=== PATIENT | male | born 1990 | race African-American/Black ===

== ENCOUNTER 2017-07-16 15:14 | Emergency (ER) | payer SELFPAY ==
[~2017-07-16] VITALS: Ht 170.2 cm; Wt 66.5 kg
[~2017-07-16 15:14] MED LIST: NOHOMEMEDS
[2017-07-16 18:40] VITALS: BP 122/75
== END 2017-07-16 18:41 | disposition left against medical advice (07) ==
LOC: EME 15:14
DX: M79.642 Pain in left hand (principal); Z53.20 Procedure and treatment not carried out because of patient's decision for unspecified reasons; F17.200 Nicotine dependence, unspecified, uncomplicated
CPT/HCPCS: 73130; 99281; 99284

== ENCOUNTER 2017-08-02 22:26 | Emergency (ER) | payer SELFPAY ==
[~2017-08-02] VITALS: Ht 170.2 cm; Wt 65.9 kg
[2017-08-02] MEDS ORDERED: ZANTAC150 MG PO (23:37)
[2017-08-02] MEDS ORDERED: DELTASONE20 M1 PO (23:37)
[2017-08-03 00:10] VITALS: BP 128/54
== END 2017-08-03 00:10 | disposition home or self-care (01) ==
LOC: EME 22:26 → EXP 22:26
DX: L23.6 Allergic contact dermatitis due to food in contact with the skin (principal); F17.200 Nicotine dependence, unspecified, uncomplicated
CPT/HCPCS: 99281; 99283; J7512

== ENCOUNTER 2017-09-27 21:49 | Emergency (ER) | payer OTHER ==
[~2017-09-27] VITALS: Ht 170.2 cm; Wt 64.2 kg
[~2017-09-27 21:49] MED LIST changes: +DELTASONE20 M1 PO; +ZANTAC150 MG PO
[2017-09-28 00:01] VITALS: BP 135/86
== END 2017-09-28 00:03 | disposition home or self-care (01) ==
LOC: EME 21:49
PROC: 0HQGXZZ Repair Left Hand Skin, External Approach (ICD-10-PCS; principal; 2017-09-27)
DX: S61.217A Laceration without foreign body of left little finger without damage to nail, initial encounter (principal); W26.8XXA Contact with other sharp object(s), not elsewhere classified, initial encounter; Y93.G1 Activity, food preparation and clean up
CPT/HCPCS: 73130; 99281; 99284; S0020